=== PATIENT | female | born 1995 | race Two or more races ===

== ENCOUNTER 2018-12-31 17:22 | Emergency (ER) | payer MEDICAID ==
[~2018-12-31] VITALS: Ht 160 cm; Wt 59.0 kg
[2018-12-31] MEDS ORDERED: NKM (17:56)
--- NOTE | 2018-12-31 18:49 | Emergency Room Report ---
History of Present Illness General Chief Complaint: Foreign Body Source: Patient Present Illness HPI 23-year-old female presents to the emergency department complaining of foreign body sensation in the left ear 3 days. Patient reports that she was but she was using a Q-tip to clean her ear and she believes that some of the cotton may have been left inside. Patient describes only foreign body sensation she denies pain she denies ear discharge, bleeding or changes in her hearing. She does report some itching. No modifying factors. Allergies: Coded Allergies: Meat (Verified Allergy, Unknown, 12/31/18) Patient History Past Medical History: see triage record Past Surgical History: none Pertinent Family History: none Last Menstrual Period: 12/01/2018 Now: No Immunizations: UTD Reviewed Nursing Documentation: PMH: Agreed; PSxH: Agreed Nursing Documentation-PMH Past Medical History: No Stated History Review of Systems All Other Systems: negative except mentioned in HPI Physical Exam Vital Signs Date Time Temp Pulse Resp B/P (MAP) Pulse Ox O2 Delivery O2 Flow Rate FiO2 12/31/18 17:52 98.1 81 15 113/77 99 Room Air Sp02 EP Interpretation: reviewed, normal General Appearance: no apparent distress, alert, GCS 15, non-toxic Head: normocephalic, atraumatic Eyes: bilateral eye normal inspection, bilateral eye PERRL ENT: hearing grossly normal, normal voice, TMs + canals normal - no visible fb , slight abrasion on the canal of the left ear, no d/c, normal TM Neck: full range of motion Respiratory: lungs clear, normal breath sounds, speaking full sentences Cardiovascular #1: regular rate, rhythm Musculoskeletal: back normal, gait/station normal, normal range of motion, non- tender Neurologic: alert, oriented x3, responsive, motor strength/tone normal, sensory intact, speech normal, grossly normal Psychiatric: judgement/insight normal Skin: normal color, no rash, warm/dry, well hydrated Lymphatic: no adenopathy Medical Decision Making PA Attestation Dr. degroot is my supervising Physician whom patient management has been discussed with. Diagnostic Impression: Primary Impression: Normal ear exam ER Course 23-year-old female presents to the emergency department complaining of foreign body sensation in the left ear 3 days. Patient reports that she was but she was using a Q-tip to clean her ear and she believes that some of the cotton may have been left inside. Patient describes only foreign body sensation she denies pain she denies ear discharge, bleeding or changes in her hearing. She does report some itching. No modifying factors. Ddx considered but are not limited to OM, OE, mastoiditis, TM perforation, FB Vital signs: are WNL, pt. is afebrile H&PE are most consistent with foreign body of the left ear ORDERS: none required at this time, the diagnosis is clinical -OTOSCOPY: no obvious Fb in the left ear. no evidence of infection or trauma to the external canal. ED INTERVENTIONS: none DISCHARGE: At this time pt. is stable for d/c to home. Will provide printed patient care instructions, and any necessary prescriptions. Care plan and follow up instructions have been discussed with the patient prior to discharge. D/w followup with ENT specialist for removal. Last Vital Signs Date Time Temp Pulse Resp B/P (MAP) Pulse Ox O2 Delivery O2 Flow Rate FiO2 12/31/18 17:52 98.1 81 15 113/77 99 Room Air Disposition: HOME, SELF-CARE Condition: Stable Patient Instructions: Medical Screening Exam Additional Instructions: Take any previously prescribed medications as directed. - Please note that this Emergency Department Report was dictated using [email or web address] technology software, occasionally this can lead to erroneous entry secondary to interpretation by the dictation equipment. Melissa Abbott Dec 31, 2018 18:49
[2018-12-31 18:56] VITALS: BP 122/78
--- NOTE | 2018-12-31 18:56 | NUR ---
Patient was evaluated, treated and discharged with aftercare instructions by MD/PA
== END 2018-12-31 18:55 | disposition home or self-care (01) ==
LOC: EMR 18:10
DX: H93.92 Unspecified disorder of left ear (principal); S00.412A Abrasion of left ear, initial encounter; X58.XXXA Exposure to other specified factors, initial encounter
CPT/HCPCS: 99281